=== PATIENT | female | born 1945 | race Caucasian/White ===

== ENCOUNTER 2021-01-07 08:56 | Inpatient (IN) ==
[2021-01-07] MEDS ORDERED: Lactated Ringers 1000 ml BAG 1,000 ML IV ONE (09:58)
[2021-01-07 10:04] LABS: ABS Basophils 0.1 10^3/ul (0-0.2); ABS Lymphocytes 1.1 10^3/ul (1.0-4.8); ABS Monocytes 0.3 10^3/ul (0-0.8); ABS Neutrophils 10.1 10^3/ul (1.5-7.7); Eosinophil % 0.1 %; Hematocrit 18 % (35-47); Hemoglobin 5.8 g/dL (12.0-16.0); Lymphocyte % 9.2 %; Mean Corpuscular HGB Conc 33 g/dL (31-36); Mean Corpuscular Hemoglobin 28 pg (27-31); Mean Corpuscular Volume 88 fL (80-97); Mean Platelet Volume 6.4 fL (7.4-10.4); Platelet Count 563 10^3/uL (150-450); Red Blood Count 2.04 10^6 /uL (3.70-4.87); Red Cell Distribution Width 15 % (10-15); White Blood Count 11.6 10^3/uL (3.5-10.8)
[2021-01-07 10:16] LABS: Anion Gap 7 mmol/L (2-11); Blood Urea Nitrogen 37 mg/dL (6-24); CO2 Carbon Dioxide 26 mmol/L (22-32); Calcium 8.7 mg/dL (8.6-10.3); Chloride 104 mmol/L (101-111); EGFR African American 156.7 (>60); EGFR Non-African American 129.5 (>60); Glucose 124 mg/dL (70-100); Potassium 3.6 mmol/L (3.5-5.0); Sodium 137 mmol/L (135-145)
[2021-01-07 10:17] LABS: ALT 8 U/L (7-52); AST 15 U/L (13-39); Albumin 3.5 g/dL (3.2-5.2); Albumin/Globulin Ratio 1.2 (1-3); Alkaline Phosphatase 88 U/L (35-149); Globulin 2.9 g/dL (2-4); Total Protein 6.4 g/dL (6.4-8.9)
[2021-01-07] MEDS ORDERED: NS 0.9% 1000 ml BAG 1,000 ML IV ONE (10:18)
[2021-01-07 10:23] LABS: Rapid COVID-19 Molecular Undetected (Undetected)
[2021-01-07 10:28] LABS: Troponin I 0.04 ng/mL (<0.03)
[2021-01-07] MEDS ORDERED: Pantoprazole VIAL 40 MG VIAL IV ONE (11:25)
[2021-01-07] MEDS: Pantoprazole 80 mg in NS BAG 80 MG/250 ML BAG IV SCH ×2 (12:27→23:04)
[2021-01-07 18:36] LABS: Troponin I 0.04 ng/mL (<0.03)
[2021-01-07] MEDS: D5LR 1000 ml BAG 1,000 ML IV SCH (19:59)
[2021-01-07 20:48] LABS: Hematocrit 25 % (35-47); Hemoglobin 8.3 g/dL (12.0-16.0)
[2021-01-08 00:35] LABS: Hematocrit 25 % (35-47); Hemoglobin 8.6 g/dL (12.0-16.0)
[2021-01-08 02:07] LABS: Hematocrit 24 % (35-47); Hemoglobin 8.2 g/dL (12.0-16.0)
[2021-01-08 06:27] LABS: ABS Basophils 0.1 10^3/ul (0-0.2); ABS Eosinophils 0.2 10^3/ul (0-0.6); ABS Lymphocytes 1.1 10^3/ul (1.0-4.8); ABS Monocytes 0.5 10^3/ul (0-0.8); ABS Neutrophils 5.3 10^3/ul (1.5-7.7); Eosinophil % 2.3 %; Hematocrit 24 % (35-47); Hemoglobin 8.2 g/dL (12.0-16.0); Lymphocyte % 15.6 %; Mean Corpuscular HGB Conc 34 g/dL (31-36); Mean Corpuscular Hemoglobin 29 pg (27-31); Mean Corpuscular Volume 86 fL (80-97); Mean Platelet Volume 6.2 fL (7.4-10.4); Platelet Count 364 10^3/uL (150-450); Red Blood Count 2.81 10^6 /uL (3.70-4.87); Red Cell Distribution Width 15 % (10-15); White Blood Count 7.2 10^3/uL (3.5-10.8)
[2021-01-08 06:52] LABS: Calcium 8.3 mg/dL (8.6-10.3); EGFR African American 156.7 (>60); EGFR Non-African American 129.5 (>60); Potassium 3.1 mmol/L (3.5-5.0)
[2021-01-08] MEDS: Pantoprazole 80 mg in NS BAG 80 MG/250 ML BAG IV SCH (09:29)
[2021-01-08] MEDS: D5LR 1000 ml BAG 1,000 ML IV SCH (12:27)
[2021-01-08 14:02] LABS: Hematocrit 26 % (35-47); Hemoglobin 8.8 g/dL (12.0-16.0)
[2021-01-08] MEDS ORDERED: fentaNYL 100 mcg/2 ml 50 MCG/ML VIAL ONE (15:07)
[2021-01-08] MEDS ORDERED: Midazolam 10 mg/10 ml VIAL 1 mg/ml 10 ml VIAL (10 mg) ONE (15:07)
[2021-01-08 17:04] VITALS: BP 168/73
== END 2021-01-08 18:20 | disposition home or self-care (01) | DRG 378 ==
LOC: ED 08:56 → MEDTELE 21:20
PROVIDERS: ADMIT Internal Medicine; ATTEND Internal Medicine

== ENCOUNTER 2022-05-11 17:39 | Inpatient (IN) ==
[2022-05-11] MEDS ORDERED: Ondansetron 4 mg VIAL 2 MG/ML 2 ml VIAL IV ONE (18:50)
[2022-05-11] MEDS ORDERED: Morphine 4 MG/ML VIAL (1 ml) IV ONE (18:50)
[2022-05-11] MEDS ORDERED: Ondansetron 4 mg VIAL 2 MG/ML 2 ml VIAL IV PRN (20:14)
[2022-05-11] MEDS ORDERED: diazePAM INJ CARPUJECT 5 MG/ML SYRINGE IV ONE (20:26)
[2022-05-11] MEDS: Enoxaparin 40 MG/0.4 ML SYR SUBCUT SCH (20:35)
[2022-05-12] MEDS ORDERED: diazePAM INJ CARPUJECT 5 MG/ML SYRINGE IV ONE (11:12)
[2022-05-12] MEDS ORDERED: Senna TAB 8.6 mg TAB PO PRN (15:26)
[2022-05-12] MEDS ORDERED: Magnesium Hydroxide LIQ 30 ML UDC PO PRN (15:26)
[2022-05-12] MEDS: Enoxaparin 40 MG/0.4 ML SYR SUBCUT SCH (21:55)
[2022-05-13] MEDS ORDERED: Ondansetron ODT 4 mg TAB 4 MG TAB SL PRN (12:10)
[2022-05-13] MEDS: Senna TAB 8.6 mg TAB PO SCH (20:03)
[2022-05-13] MEDS: Enoxaparin 40 MG/0.4 ML SYR SUBCUT SCH (20:07)
[2022-05-14] MEDS: Polyethylene Glycol 3350 17 GM PACKET PO SCH (11:54)
[2022-05-14] MEDS: Senna TAB 8.6 mg TAB PO SCH (20:56)
[2022-05-14] MEDS: Enoxaparin 40 MG/0.4 ML SYR SUBCUT SCH (20:56)
[2022-05-15] MEDS: Polyethylene Glycol 3350 17 GM PACKET PO SCH (08:54)
[2022-05-15 11:53] VITALS: BP 149/83
== END 2022-05-15 13:05 | disposition home or self-care (01) | DRG 563 ==
LOC: EDHOLD 17:39 → ED 17:39 → SUATTDRO 20:14 → EDHOLD 23:39 → SSU 05-12 00:51 → SUATTDRO 05-13 15:34
PROVIDERS: ADMIT Student in an Organized Health Care Education/Training Program; ATTEND Student in an Organized Health Care Education/Training Program